=== PATIENT | female | born 1980 | race Caucasian/White ===

== ENCOUNTER 2020-06-07 17:09 | Emergency (ER) | payer OTHER ==
[~2020-06-07] VITALS: Ht 162.6 cm; Wt 120.7 kg
[2020-06-07] MEDS ORDERED: SYNTHROID200 MCG (17:19)
== END 2020-06-07 22:38 | disposition home or self-care (01) ==
LOC: ER 17:09
DX: N94.4 Primary dysmenorrhea (principal)

== ENCOUNTER 2021-10-30 09:53 | Emergency (ER) | payer OTHER ==
[~2021-10-30] VITALS: Ht 162.6 cm; Wt 129.3 kg
[~2021-10-30 09:53] MED LIST: SYNTHROID200 MCG
== END 2021-10-30 14:20 | disposition home or self-care (01) ==
LOC: ER 09:53
DX: J03.90 Acute tonsillitis, unspecified (principal); H66.90 Otitis media, unspecified, unspecified ear; Z20.822 Contact with and (suspected) exposure to COVID-19